=== PATIENT | female | born 1995 | race Caucasian/White ===

== ENCOUNTER 2020-09-30 12:18 | Emergency (ER) | payer OTHER, SELFPAY ==
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
[2020-09-30 12:22] VITALS: BP 140/90; PULSE 62; RESP 16; TEMP 36.8; O2SAT 99; BMI 29.1
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
== END 2020-09-30 14:26 | disposition home or self-care (01) ==
PROVIDERS: Emergency Provider Emergency Medicine
DX: S16.1XXA Strain of muscle, fascia and tendon at neck level, initial encounter (principal); V43.52XA Car driver injured in collision with other type car in traffic accident, initial encounter; M25.512 Pain in left shoulder; Y93.89 Activity, other specified; Y92.414 Local residential or business street as the place of occurrence of the external cause; Y99.9 Unspecified external cause status
CPT/HCPCS: 72125; 73030; 99284

== ENCOUNTER 2021-06-25 12:43 | Outpatient (REF) | payer OTHER, SELFPAY | END 2021-06-25 12:44 | disposition home or self-care (01) | LOC: HO.LAB 12:43 | PROVIDERS: Visit Provider Internal Medicine | DX: Z20.822 Contact with and (suspected) exposure to COVID-19 (principal) | CPT/HCPCS: C9803; U0003; U0005 ==